=== PATIENT | female | born 1935 ===

== ENCOUNTER 2017-02-07 07:04 | Day surgery (SDC) | payer MEDICARE, MEDICAID ==
[2017-02-07] VITALS (9 sets, daily range): BP systolic 137–150; BP diastolic 80–93
[~2017-02-07] VITALS: Ht 160 cm; Wt 70.8 kg
--- NOTE | 2017-02-07 07:00 | Pre-Procedure Note/Attestation ---
Pre-Procedure Note/Attestation Complete Prior to Procedure Planned Procedure: right Procedure Narrative: removal right subclavian Sanjuanita cath Indications for Procedure Pre-Operative Diagnosis: s/p placement right subclavian Sanjuanita cath Attestation I attest that I discussed the nature of the procedure; its benefits; risks and complications; and alternatives (and the risks and benefits of such alternatives ), prior to the procedure, with the patient (or the patient's legal insurance service representative). I attest that, if there was a reasonable possibility of needing a blood transfusion, the patient (or the patient's legal insurance service representative) was given the [place] [employer] standardized written summary, pursuant to the Mandeep Pito Blood Safety Act ([place] Health and Safety Code # 1645, as amended). I attest that I re-evaluated the patient just prior to the surgery and that there has been no change in the patient's H&P, except as documented below: NED ESTEBAN February 07, 2017 07:00
[2017-02-07] MEDS ORDERED: Propofol 10mg/ml 20ml IV ONE (08:30)
[2017-02-07] MEDS ORDERED: LR 1000ml ONE (08:30)
[2017-02-07] MEDS ORDERED: NS Irrig 1000ml ONE (08:30)
[2017-02-07] MEDS ORDERED: fentaNYL 100 mcg/2 mL IV ONE (08:30)
[2017-02-07] MEDS ORDERED: Midazolam 2mg/2ml Inj ONE (08:30)
[2017-02-07] MEDS ORDERED: Lidocaine 1% Plain 30 ml INJ ONE (08:34)
[2017-02-07] MEDS ORDERED: ANTIVERT PO (08:38)
[2017-02-07] MEDS ORDERED: NEXIUM40 MG ORAL (08:38)
[2017-02-07] MEDS ORDERED: LINZESS290 MCG PO (08:38)
[2017-02-07] MEDS ORDERED: KLONOPIN0.5 MG ORAL (08:38)
[2017-02-07] MEDS ORDERED: EXFORGE 10-3201 EACH ORAL (08:38)
[2017-02-07] MEDS ORDERED: PREMARIN VAG CR45 GM PV (08:38)
[2017-02-07] MEDS ORDERED: NAMENDA XR28 MG PO (08:38)
[2017-02-07] MEDS ORDERED: CRESTOR20 MG ORAL (08:38)
[2017-02-07] MEDS ORDERED: Lidocaine 1% 10mg/ml/Epi 0.005mg/ml 30ml vial INJ ONE (08:53)
--- NOTE | 2017-02-07 09:20 | Brief Operative Note ---
Immediate Post Operative Note Operative Note Pre-op Diagnosis: s/p placement right subclavian Sanjuanita cath Procedure: removal right subclavian Portacath Post-op Diagnosis: same as pre-op Surgeon: arnulfo Anesthesiologist: lyssa Anesthesia: local, MAC Specimen: yes - Portacath (gross only) Complications: none Condition: stable Estimated Blood Loss: minimal Drains: none Implant(s) used?: No NED ESTEBAN February 07, 2017 09:20
--- NOTE | 2017-02-07 09:24 | Anethesia Preoperative Eval ---
Anesthesia Pre-op PMH/ROS General Date of Evaluation: February 07, 2017 Time of Evaluation: 08:30 Anesthesiologist: tory ASA Score: ASA 3 Mallampati Score Class I : Soft palate, uvula, fauces, pillars visible Class II: Soft palate, uvula, fauces visible Class III: Soft palate, base of uvula visible Class IV: Only hard plate visible Mallampati Classification: Class I Social History: smoking Allergies: Coded Allergies: ACETAMINOPHEN (Verified Allergy, Unknown, 02/06/17) HYDROCODONE (Verified Allergy, Unknown, 02/06/17) Past Medical History Cardiovascular: Reports: HTN Pulmonary: Reports: COPD Gastrointestinal/Genitourinary: Reports: GERD Endocrine: Reports: hypothyroidism Anesthesia Pre-op Phys. Exam Physician Exam Last Vital Signs Date Time Temp Pulse Resp B/P Pulse Ox O2 Delivery O2 Flow Rate FiO2 02/07/17 08:12 97.7 81 20 147/91 98 Room Air Susan William MD February 07, 2017 09:24
--- NOTE | 2017-02-07 09:25 | Immediate Post-Op Evaluation ---
Immediate Post-Op Evalulation Immediate Post-Op Evalulation Procedure: removal of riya cath Date of Evaluation: February 07, 2017 Time of Evaluation: 09:24 Nausea: No Vomiting: No Given Within 1 Hr of Incision: Yes Susan William MD February 07, 2017 09:25
[2017-02-07] MEDS ORDERED: fentaNYL 100 mcg/2 mL IV PRN (09:30)
[2017-02-07] MEDS ORDERED: Tylenol #3 tab (300mg/30mg) ORAL PRN (09:30)
--- NOTE | 2017-02-07 10:24 | 48 Hour Post Anesthesia Eval ---
Post Anesthesia Evaluation Procedure: removal of riya cath Date of Evaluation: February 07, 2017 Time of Evaluation: 10:24 Nausea: No Vomiting: No Mental Status/LOC: patient returned to baseline Follow-up care needed: ready to discharge Susan William MD February 07, 2017 10:24
--- NOTE | 2017-02-07 17:15 | Operative Note - Dictated ---
DATE OF OPERATION: 02/07/2017 SURGEON: Julito Farfan M.D. ORDER DEPARTMENT SUPERVISOR: None. ANESTHESIOLOGIST: Dr. William. ANESTHESIA: Monitored anesthesia care. PREOPERATIVE DIAGNOSIS: History of placement of [id number] in the right subclavian vein, for possible angiosarcoma, catheter never used. POSTOPERATIVE DIAGNOSIS: History of placement of Kgve-[id number] in the right subclavian vein, for possible angiosarcoma, catheter never used. NAME OF OPERATION: Removal of right subclavian [id number]. FINDINGS AND INDICATIONS: The patient is a very 82-year-old [place] female with a history of having had a Vttc-H-Zyxvdixi placed several years ago after which time she was suspected to have an angiosarcoma. Since then, she has been doing well and there was no evidence of angiosarcoma. Therefore, the catheter was removed because it was never needed. The procedure was done uneventfully. PROCEDURE: With the patient lying in the supine position on the operating table, under local anesthesia plus intravenous sedation by Dr. William with the entire right neck region prepped and draped in usual sterile fashion with Betadine. The right subclavian catheter was palpated. The area was injected with Xylocaine 1% with epinephrine and a transverse incision was carried out after a complete time-out. The incision was then carefully dissected and the catheter with reservoir was then found, which was then dissected free and removed sharply and the capsule also removed. Pressure was used for hemostasis of both the subclavian and internal jugular area, stroke quite a while, and once we made sure hemostasis was adequate, the wound was washed with normal saline. Hemostasis was double checked, which was adequate with the cautery and the edges approximated with 3-0 Vicryl subcutaneous and 4-0 Vicryl subcuticular sutures and Steri-Strips, 2 x 2 's and Tegaderm was placed. The patient tolerated the procedure well. ESTIMATED BLOOD LOSS: Less than 5 mL. COUNTS: Sponge and needle counts correct. She went to recovery room in stable condition. Julito Farfan M.D. DR: HUMBERTO/ JOB#: [id number] CC:
== END 2017-02-07 11:05 | disposition home or self-care (01) ==
LOC: SUR 07:04
DX: Z45.2 Encounter for adjustment and management of vascular access device (principal); E11.9 Type 2 diabetes mellitus without complications; I10 Essential (primary) hypertension; E89.0 Postprocedural hypothyroidism; J44.9 Chronic obstructive pulmonary disease, unspecified; K21.9 Gastro-esophageal reflux disease without esophagitis; F17.200 Nicotine dependence, unspecified, uncomplicated; Z90.710 Acquired absence of both cervix and uterus; Z90.722 Acquired absence of ovaries, bilateral; Z90.79 Acquired absence of other genital organ(s); Z88.6 Allergy status to analgesic agent; Z88.5 Allergy status to narcotic agent
CPT/HCPCS: 36590; 82962; J0690; J2250; J2704; J3010; J7120; 94003; 94150